=== PATIENT | male | born 1990 | race Two or more races ===

== ENCOUNTER 2016-06-01 15:15 | Emergency (ER) | payer MEDICAID ==
[~2016-06-01] VITALS: Ht 185.4 cm; Wt 79.4 kg
[2016-06-01 16:11] VITALS: BP 134/77
[2016-06-01] MEDS ORDERED: cefTRIAXone SOD 1,000 MG VL IM ONE (16:45)
== END 2016-06-01 17:24 | disposition home or self-care (01) ==
LOC: ER 15:22
DX: J03.90 Acute tonsillitis, unspecified (principal); F17.210 Nicotine dependence, cigarettes, uncomplicated
CPT/HCPCS: 96372; 99283; J0696